=== PATIENT | male | born 1955 | race Two or more races ===

== ENCOUNTER 2023-05-11 21:24 | Inpatient (IN) | payer MEDICARE ==
[~2023-05-11] VITALS: Ht 172.7 cm; Wt 61.7 kg
[2023-05-11 22:08] LABS: BASOPHILS % 0.5 % (0.0-2.0); EOSINOPHILS % 3.2 % (0.0-5.0); HEMATOCRIT. 37.3 % (42.0-52.0); LYMPHOCYTES % 30.3 % (20.0-50.0); MEAN CORPUSCULAR HEMOGLOBIN 32.7 pg (28.0-32.0); MEAN CORPUSCULAR HGB CONC 34.8 g/dL (31.0-37.0); MEAN CORPUSCULAR VOLUME 93.9 fL (80.0-94.0); MEAN PLATELET VOLUME 7.4 fl (7.4-10.4); MONOCYTES % 10.1 % (2.0-8.0); NEUTROPHILS % 55.9 % (40.0-76.0); PLATELET 118 x1000/uL (130-400); RED BLOOD CELL COUNT 3.97 mill/uL (4.7-6.1); WHITE BLOOD COUNT 5.6 x1000/uL (4.5-11.0)
[2023-05-11 22:14] LABS: CHLORIDE 99 mEq/L (98-107); INDEX HEMOLYSI 2 (1-3); INDEX ICTERIC 1 (1-4); INDEX LIPEMIC 1 (1-3); SODIUM 131 mEq/L (136-145)
[2023-05-11 22:17] LABS: CLARITY URINE CLEAR (CLEAR); COLOR URINE YELLOW (YELLOW); GLUCOSE URINE NEGATIVE (NEGATIVE); KETONES URINE NEGATIVE (NEGATIVE); LEUKOCYTE ESTERASE URINE NEGATIVE (NEGATIVE); NITRITE URINE NEGATIVE (NEGATIVE); OCCULT BLOOD URINE NEGATIVE (NEGATIVE); PH URINE 6.5 (4.5-8.0); PROTEIN URINE NEGATIVE (NEGATIVE); SPECIFIC GRAVITY URINE 1.013 (1.005-1.030)
[2023-05-11 22:22] LABS: ALANINE AMINOTRANSFERASE 19 IU/L (13-61); ALBUMIN 3.9 g/dL (3.4-5.0); ASPARTATE AMINOTRANSFERASE 23 IU/L (15-37); BILIRUBIN TOTAL 0.8 mg/dL (0.1-1.0); CALCIUM 8.7 mg/dL (8.5-10.1); CARBON DIOXIDE 21 mEq/L (21-32); CREATININE 0.8 mg/dL (0.6-1.3); ETHANOL BLOOD 59 mg/dL (<10); GLUCOSE 97 mg/dL (70-105); UREA NITROGEN BLOOD 6 mg/dL (7-21)
[2023-05-11] MEDS ORDERED: CLOPIDOGREL 75MG TABLET PO ONE (22:30)
[2023-05-11] MEDS ORDERED: ASPIRIN 325MG TABLET PO ONE (22:30)
[2023-05-11] MEDS ORDERED: DILTIAZEM HCL 90MG TABLET PO ONE (22:30)
[2023-05-11 22:35] LABS: *AMPHETAMINES SCREEN URINE NEGATIVE (NEGATIVE); *BARBITURATES SCREEN URINE NEGATIVE (NEGATIVE); *BENZODIAZEPINES SCREEN URINE NEGATIVE (NEGATIVE); *COCAINE SCREEN URINE NEGATIVE (NEGATIVE); CANNABINOID URINE SCREEN NEGATIVE (NEGATIVE); ECSTASY MDMA SCREEN URINE NEGATIVE (NEGATIVE); OPIATES URINE SCREEN NEGATIVE (NEGATIVE); PHENCYCLIDINE URINE SCREEN NEGATIVE (NEGATIVE)
[2023-05-11 22:45] LABS: METHADONE URINE SCREEN INVALID (NEGATIVE)
[2023-05-11 22:47] LABS: INR 1.1; PROTHROMBIN TIME 11.4 sec (9.6-11.0)
[2023-05-12] MEDS ORDERED: IOHEXOL-350 100 ML BOTTLE ONE (01:30)
[2023-05-12] MEDS ORDERED: LISI20TA31 PO (19:28)
[2023-05-12] MEDS ORDERED: LORA-250 PO ×2 (19:28)
[2023-05-12] MEDS ORDERED: ATOR20TA65 PO (19:28)
[2023-05-12] MEDS ORDERED: METO25TA6 PO (19:28)
[2023-05-12 19:30] VITALS: BP 159/85; PULSE 80; PULSE 85; RESP 18; TEMP 99
[2023-05-12] MEDS ORDERED: FOLIC ACID 1 MG, THIAMINE HCL 100 MG, MVI, ADULT NO.1 10 ML in DEXTROSE 5% WATER 1,000 ML IV ONE ×4 (20:00)
[2023-05-12 21:19] LABS: TROPONIN I HIGH SENSITIVITY 38 ng/L (<78)
[2023-05-12] MEDS: ATORVASTATIN CALCIUM 40MG TABLET PO SCH (21:59)
[2023-05-12] MEDS: METOPROLOL TARTRATE 50MG TABLET PO SCH (21:59)
[2023-05-12] MEDS: HEPARIN 5000 UNITS/ML VIAL SUBCUT SCH (21:59)
[2023-05-12] MEDS ORDERED: LORAZEPAM 1MG TABLET PO PRN (22:00)
[2023-05-12 23:58] VITALS: BP 138/63; PULSE 63; RESP 18; TEMP 98.2
[2023-05-13 04:30] VITALS: BP 141/72; PULSE 82; RESP 18; TEMP 98.6
[2023-05-13 06:59] LABS: BASOPHILS % 0.4 % (0.0-2.0); EOSINOPHILS % 0.5 % (0.0-5.0); HEMATOCRIT. 38.6 % (42.0-52.0); HEMOGLOBIN. 13.5 g/dL (14.0-18.0); LYMPHOCYTES % 12.6 % (20.0-50.0); MEAN CORPUSCULAR HEMOGLOBIN 32.3 pg (28.0-32.0); MEAN CORPUSCULAR HGB CONC 34.9 g/dL (31.0-37.0); MEAN CORPUSCULAR VOLUME 92.5 fL (80.0-94.0); MEAN PLATELET VOLUME 7.3 fl (7.4-10.4); MONOCYTES % 10.2 % (2.0-8.0); NEUTROPHILS % 76.3 % (40.0-76.0); PLATELET 149 x1000/uL (130-400); RED BLOOD CELL COUNT 4.17 mill/uL (4.7-6.1); RED CELL DISTRIBUTION WIDTH 12.7 % (11.6-14.6); WHITE BLOOD COUNT 8.4 x1000/uL (4.5-11.0)
[2023-05-13 07:19] LABS: TROPONIN I HIGH SENSITIVITY 33 ng/L (<78)
[2023-05-13 07:42] VITALS: BP 106/64; PULSE 70; RESP 20; TEMP 97.5
[2023-05-13 07:58] LABS: CHLORIDE 96 mEq/L (98-107); INDEX HEMOLYSI 1 (1-3); INDEX ICTERIC 1 (1-4); INDEX LIPEMIC 1 (1-3); POTASSIUM 4.6 mEq/L (3.5-5.1); SODIUM 127 mEq/L (136-145)
[2023-05-13 08:05] LABS: CALCIUM 8.9 mg/dL (8.5-10.1); CARBON DIOXIDE 25 mEq/L (21-32); CHOLESTEROL 95 mg/dL (<200); CREATININE 0.8 mg/dL (0.6-1.3); GLUCOSE 181 mg/dL (70-105); HDL CHOLESTEROL 36 mg/dL (40-59); LDL CHOLESTEROL 50 mg/dL (5-100); TRIGLYCERIDE 94 mg/dL (0-150); UREA NITROGEN BLOOD 8 mg/dL (7-21)
[2023-05-13] MEDS: PANTOPRAZOLE 40MG DR TABLET PO SCH ×2 (08:50→13:51)
[2023-05-13] MEDS: ASPIRIN 325MG EC TABLET PO SCH (08:51)
[2023-05-13] MEDS: HEPARIN 5000 UNITS/ML VIAL SUBCUT SCH (08:51)
[2023-05-13] MEDS ORDERED: LISINOPRIL 40MG TABLET PO SCH (09:00)
[2023-05-13] MEDS: METOPROLOL TARTRATE 50MG TABLET PO SCH ×2 (11:43→17:00)
[2023-05-13 11:56] VITALS: BP 162/82; PULSE 85; RESP 18; TEMP 97.4
[2023-05-13] MEDS ORDERED: MAGNESIUM/ALUMINUM HYDROXIDE/SIMETHICONE 30ML UDC PO PRN (13:45)
[2023-05-13] MEDS: DILTIAZEM HCL 60MG TABLET PO SCH ×2 (13:52→18:44)
[2023-05-13] MEDS: SODIUM CHLORIDE 0.9% 1,000 ML IV SCH (13:53)
[2023-05-13 15:59] VITALS: BP 114/55; PULSE 62; RESP 18; TEMP 97.1
[2023-05-13 16:16] LABS: TROPONIN I HIGH SENSITIVITY 30 ng/L (<78)
[2023-05-13] MEDS: APIXABAN 5 MG TABLET PO SCH (17:00)
[2023-05-13] MEDS: NICOTINE 14MG PATCH TD SCH (18:45)
[2023-05-13 20:00] VITALS: BP 131/171; PULSE 61; RESP 18; TEMP 98.3
[2023-05-13] MEDS: ATORVASTATIN CALCIUM 40MG TABLET PO SCH (20:45)
[2023-05-13 23:49] VITALS: BP 105/46; PULSE 62; RESP 18; TEMP 97.9
[2023-05-14 00:33] LABS: TROPONIN I HIGH SENSITIVITY 28 ng/L (<78)
[2023-05-14 04:00] VITALS: BP 150/65; PULSE 82; RESP 18; TEMP 98
[2023-05-14] MEDS: SODIUM CHLORIDE 0.9% 1,000 ML IV SCH (05:45)
[2023-05-14] MEDS ORDERED: DILTIAZEM HCL 60MG TABLET PO SCH (06:00)
[2023-05-14 07:49] LABS: BASOPHILS % 0.4 % (0.0-2.0); EOSINOPHILS % 0.5 % (0.0-5.0); HEMATOCRIT. 36.7 % (42.0-52.0); LYMPHOCYTES % 14.8 % (20.0-50.0); MEAN CORPUSCULAR HGB CONC 35.3 g/dL (31.0-37.0); MEAN CORPUSCULAR VOLUME 93.4 fL (80.0-94.0); MEAN PLATELET VOLUME 7.6 fl (7.4-10.4); MONOCYTES % 9.4 % (2.0-8.0); NEUTROPHILS % 74.9 % (40.0-76.0); PLATELET 152 x1000/uL (130-400); RED BLOOD CELL COUNT 3.93 mill/uL (4.7-6.1)
[2023-05-14 08:15] VITALS: BP 142/61; PULSE 74; RESP 2; TEMP 98.1
[2023-05-14 08:18] LABS: CHLORIDE 97 mEq/L (98-107); INDEX HEMOLYSI 2 (1-3); INDEX ICTERIC 1 (1-4); INDEX LIPEMIC 1 (1-3); SODIUM 128 mEq/L (136-145)
[2023-05-14 08:25] LABS: CALCIUM 8.4 mg/dL (8.5-10.1); CARBON DIOXIDE 21 mEq/L (21-32); CREATININE 0.6 mg/dL (0.6-1.3); GLUCOSE 122 mg/dL (70-105); UREA NITROGEN BLOOD 10 mg/dL (7-21)
[2023-05-14] MEDS: NICOTINE 14MG PATCH TD SCH (08:50)
[2023-05-14] MEDS: ASPIRIN 325MG EC TABLET PO SCH (08:50)
[2023-05-14] MEDS: APIXABAN 5 MG TABLET PO SCH ×2 (08:50→18:26)
[2023-05-14] MEDS: METOPROLOL TARTRATE 50MG TABLET PO SCH ×2 (08:54→18:26)
[2023-05-14] MEDS ORDERED: LISINOPRIL 20MG TABLET PO SCH (09:00)
[2023-05-14] MEDS ORDERED: CLOPIDOGREL 75MG TABLET PO SCH (09:00)
[2023-05-14] MEDS ORDERED: MAGNESIUM 2 G PREMIX 50 ML IV NR (10:00)
[2023-05-14] MEDS ORDERED: MAGNESIUM 2 G PREMIX 50 ML IV SCH (10:45)
[2023-05-14 12:00] VITALS: BP 125/55; PULSE 60; RESP 18; TEMP 98.2
[2023-05-14] MEDS: HYDRALAZINE HCL 50MG TABLET PO SCH ×2 (13:06→22:33)
[2023-05-14 16:50] VITALS: BP 145/65; PULSE 62; RESP 18; TEMP 98.1
[2023-05-14] MEDS ORDERED: ASPI-1406 PO (17:19)
[2023-05-14 20:00] VITALS: BP 120/53; PULSE 59; RESP 18; TEMP 98.6
[2023-05-14] MEDS: ATORVASTATIN CALCIUM 40MG TABLET PO SCH (21:18)
[2023-05-15] VITALS (7 sets, daily range): BP systolic 100–172; BP diastolic 49–77; PULSE 58–87; RESP 16–20; TEMP 97.5–98.2; O2SAT 95
[2023-05-15] MEDS: HYDRALAZINE HCL 50MG TABLET PO SCH ×2 (05:32→14:49)
[2023-05-15 06:13] LABS: BASOPHILS % 0.5 % (0.0-2.0); EOSINOPHILS % 1.9 % (0.0-5.0); HEMATOCRIT. 35.3 % (42.0-52.0); HEMOGLOBIN. 12.6 g/dL (14.0-18.0); LYMPHOCYTES % 14.6 % (20.0-50.0); MEAN CORPUSCULAR HEMOGLOBIN 32.7 pg (28.0-32.0); MEAN CORPUSCULAR HGB CONC 35.6 g/dL (31.0-37.0); MEAN CORPUSCULAR VOLUME 91.7 fL (80.0-94.0); MEAN PLATELET VOLUME 7.5 fl (7.4-10.4); MONOCYTES % 11.5 % (2.0-8.0); NEUTROPHILS % 71.5 % (40.0-76.0); PLATELET 141 x1000/uL (130-400); RED BLOOD CELL COUNT 3.85 mill/uL (4.7-6.1); RED CELL DISTRIBUTION WIDTH 12.9 % (11.6-14.6); WHITE BLOOD COUNT 7.7 x1000/uL (4.5-11.0)
[2023-05-15 07:22] LABS: CHLORIDE 102 mEq/L (98-107); INDEX HEMOLYSI 1 (1-3); INDEX ICTERIC 1 (1-4); INDEX LIPEMIC 1 (1-3); POTASSIUM 3.7 mEq/L (3.5-5.1); SODIUM 132 mEq/L (136-145)
[2023-05-15 07:30] LABS: CALCIUM 8.4 mg/dL (8.5-10.1); CARBON DIOXIDE 24 mEq/L (21-32); CREATININE 0.8 mg/dL (0.6-1.3); GLUCOSE 160 mg/dL (70-105); UREA NITROGEN BLOOD 14 mg/dL (7-21)
[2023-05-15] MEDS: APIXABAN 5 MG TABLET PO SCH (08:59)
[2023-05-15] MEDS: NICOTINE 14MG PATCH TD SCH (09:00)
[2023-05-15] MEDS ORDERED: FAMOTIDINE 20MG TABLET PO SCH (09:00)
[2023-05-15] MEDS: ASPIRIN 325MG EC TABLET PO SCH (09:02)
== END 2023-05-15 16:45 | disposition home or self-care (01) | DRG 65 ==
LOC: ER 21:24 → 5WST 05-12 06:13 → EDBEDREQTM 05-12 06:34 → EDBEDREQSVC 05-12 06:34 → EDBEDREQ 05-12 06:34
PROVIDERS: ADMIT Internal Medicine; ATTEND Internal Medicine
DX: I63.9 Cerebral infarction, unspecified (principal); E87.1 Hypo-osmolality and hyponatremia; E11.9 Type 2 diabetes mellitus without complications; E87.6 Hypokalemia; I48.91 Unspecified atrial fibrillation; I10 Essential (primary) hypertension; J43.9 Emphysema, unspecified; E78.5 Hyperlipidemia, unspecified; I35.0 Nonrheumatic aortic (valve) stenosis; R29.700 NIHSS score 0; R47.1 Dysarthria and anarthria; F10.10 Alcohol abuse, uncomplicated; F17.210 Nicotine dependence, cigarettes, uncomplicated; Z79.899 Other long term (current) drug therapy
CPT/HCPCS: 36415; 70496; 70498; 70551; 71045; 80048; 80053; 80061; 80305; 80320; 81003; 83036; 83735; 84484; 85025; 93005; 93306; 97162; 97165; 99291; J1644; J3411; J3475; J3490; J7030; J7070; Q9967; G0480

== ENCOUNTER 2024-07-25 16:36 | Emergency (ER) | payer MEDICARE ==
[~2024-07-25] VITALS: Ht 175.3 cm; Wt 60.0 kg
[~2024-07-25 16:36] MED LIST: ASPI-1406 PO; LORA-250 PO
[2024-07-25 16:42] VITALS: BP 119/68; PULSE 69; RESP 18; TEMP 97.9; O2SAT 99
== END 2024-07-25 23:50 | disposition home or self-care (01) ==
LOC: ER 16:36
DX: S51.812A Laceration without foreign body of left forearm, initial encounter (principal); S09.90XA Unspecified injury of head, initial encounter; I48.91 Unspecified atrial fibrillation; I10 Essential (primary) hypertension; I25.10 Atherosclerotic heart disease of native coronary artery without angina pectoris; Z79.82 Long term (current) use of aspirin; Z91.02 Food additives allergy status; Z79.01 Long term (current) use of anticoagulants; W07.XXXA Fall from chair, initial encounter; Y92.89 Other specified places as the place of occurrence of the external cause; Y93.89 Activity, other specified; Y99.8 Other external cause status
CPT/HCPCS: 99284